=== PATIENT | male | born 1965 | race Hispanic/Latino ===

== ENCOUNTER 2019-08-22 01:46 | Emergency (ER) | payer OTHER ==
[2019-08-22 01:53] VITALS: BP 164/91
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
== END 2019-08-22 03:10 | disposition home or self-care (01) ==
LOC: EEVIPCON 01:46 → ED 01:46
DX: J70.5 Respiratory conditions due to smoke inhalation (principal); X08.8XXA Exposure to other specified smoke, fire and flames, initial encounter; Y93.89 Activity, other specified; Y92.89 Other specified places as the place of occurrence of the external cause; Y99.8 Other external cause status
CPT/HCPCS: 82375